=== PATIENT | female | born 1980 | race Two or more races ===

== ENCOUNTER 2018-03-17 20:01 | Emergency (ER) | payer SELFPAY ==
[~2018-03-17] VITALS: Ht 160 cm; Wt 59.0 kg
[2018-03-17 20:44] LABS: BASO # 0.1 x10^3/uL (0.0-0.2); BASO % 1 % (0-3); EOS # 0.1 x10^3/uL (0.0-0.7); EOS % 1 % (0-3); HEMATOCRIT 36.5 % (36.0-47.0); HEMOGLOBIN 12.7 g/dL (12.0-15.5); LYMPH # 2.5 x10^3/uL (1.0-4.8); LYMPH % 25 % (24-48); MEAN CORPUSCULAR HEMOGLOBIN 28 pg (25-35); MEAN CORPUSCULAR HGB CONC 35 g/dL (31-37); MEAN CORPUSCULAR VOLUME 80 fL (79-100); MONO # 0.7 x10^3/uL (0.0-1.1); MONO % 7 % (0-9); NEUT # 6.7 x10^3uL (1.8-7.7); NEUT % 67 % (31-73); PLATELET COUNT 290 x10^3/uL (140-400); RED BLOOD COUNT 4.55 x10^6/uL (3.50-5.40)
[2018-03-17 20:50] LABS: CALCIUM 9.4 mg/dL (8.5-10.1); CREATININE 0.4 mg/dL (0.6-1.0); GFR 181.6; POTASSIUM 3.4 mmol/L (3.5-5.1)
[2018-03-17] MEDS ORDERED: MORPHINE SULFATE 4 MG/ML VIAL. ONE (20:56)
[2018-03-17] MEDS ORDERED: ONDANSETRON PF 4 MG/2 ML VIAL. ONE (20:56)
--- NOTE | 2018-03-17 21:19 | PHYS DOC ---
Past Medical History Past Medical History: Anemia Past Surgical History: Appendectomy Alcohol Use: None Drug Use: None Adult General Chief Complaint Chief Complaint: VAGINAL BLEEDING HPI HPI Patient is a 37 year old female who presents with vaginal bleeding in . Patient is a at 12 weeks' gestation. She presents to the ER today complaining of onset of some abdominal pain and vaginal bleeding. She describes about equal the amount of a normal. That started earlier today. She also had some diffuse or abdominal cramping. No fever or chills. No lightheadedness or dizziness or palpitations. Patient states she was evaluated yesterday by her OB and was reportedly not having any problems at that time. Review of Systems Review of Systems Constitutional: Denies fever Eyes: Denies change in visual acuity HENT: Denies nasal congestion Respiratory: Denies cough Cardiovascular: No additional information not addressed in HPI GI: + lower abdominal pain. + nausea. no emesis : Denies dysuria Musculoskeletal: Denies back pain Integument: Denies rash Neurologic: Denies headache Endocrine: Denies polyuria All other systems were reviewed and found to be within normal limits, except as documented in this note. Current Medications Current Medications Current Medications Medications (Trade) Dose Ordered Sig/Ramy Start Time Stop Time Status Last Admin Dose Admin Morphine Sulfate (Morphine Sulfate) 4 mg STK-MED ONCE 03/17/18 20:56 03/17/18 20:57 DC Ondansetron HCl (Zofran) 4 mg STK-MED ONCE 03/17/18 20:56 03/17/18 20:57 DC Sodium Chloride 1,000 ml @ 1,000 mls/hr 1X ONCE 03/17/18 21:45 03/17/18 22:44 DC 03/17/18 21:30 1,000 MLS/HR Allergies Allergies Allergies Coded Allergies Type Severity Reaction Last Updated Verified No Known Drug Allergies 03/17/18 No Physical Exam Physical Exam Constitutional: Well developed, well nourished, no acute distress, non-toxic appearance HENT: Normocephalic, atraumatic, bilateral external ears normal, oropharynx moist Eyes: PERRLA, EOMI, conjunctiva normal Neck: Normal range of motion, no tenderness Cardiovascular:Heart rate regular rhythm, no murmur Lungs & Thorax: Bilateral breath sounds clear to auscultation Abdomen: Abdomen is appropriately gravid, soft, diffusely tender in the upper and lower quadrants, no guarding or rebound Skin: Warm, dry, no erythema Back: No tenderness Extremities: No tenderness, no edema Neurologic: Alert and oriented X 3 Psychologic: Affect normal Pelvic: Normal female external genitalia. There is blood emanating from the introitus. The mucosa is moist and noninflamed. Cervical os is visualized and found to have products of conception in the os. There is small amount of bleeding. Ring forceps were used and a products were removed. At this time the patient had some worsening of bleeding. Bimanual exam was completed. The os was dilated at least 1 cm and there are palpable conception products present Current Patient Data Vital Signs Vital Signs Date Time Temp Pulse Resp B/P (MAP) Pulse Ox O2 Delivery O2 Flow Rate FiO2 03/17/18 22:23 81 14 97/54 (68) 98 Room Air 03/17/18 20:01 98.1 98.1 Lab Values Laboratory Tests Test 03/17/18 20:35 White Blood Count 10.0 x10^3/uL (4.0-11.0) Red Blood Count 4.55 x10^6/uL (3.50-5.40) Hemoglobin 12.7 g/dL (12.0-15.5) Hematocrit 36.5 % (36.0-47.0) Mean Corpuscular Volume 80 fL (79-100) Mean Corpuscular Hemoglobin 28 pg (25-35) Mean Corpuscular Hemoglobin Concent 35 g/dL (31-37) Red Cell Distribution Width 23.0 % (11.5-14.5) H Platelet Count 290 x10^3/uL (140-400) Neutrophils (%) (Auto) 67 % (31-73) Lymphocytes (%) (Auto) 25 % (24-48) Monocytes (%) (Auto) 7 % (0-9) Eosinophils (%) (Auto) 1 % (0-3) Basophils (%) (Auto) 1 % (0-3) Neutrophils # (Auto) 6.7 x10^3uL (1.8-7.7) Lymphocytes # (Auto) 2.5 x10^3/uL (1.0-4.8) Monocytes # (Auto) 0.7 x10^3/uL (0.0-1.1) Eosinophils # (Auto) 0.1 x10^3/uL (0.0-0.7) Basophils # (Auto) 0.1 x10^3/uL (0.0-0.2) Platelet Estimate Adequate (ADEQUATE) Poikilocytosis Slight Microcytosis Slight Macrocytosis Slight Maternal Serum HCG Beta Subunit 88181 mIU/mL (0-5) H Sodium Level 140 mmol/L (136-145) Potassium Level 3.4 mmol/L (3.5-5.1) L Chloride Level 103 mmol/L (98-107) Carbon Dioxide Level 26 mmol/L (21-32) Anion Gap 11 (6-14) Blood Urea Nitrogen 8 mg/dL (7-20) Creatinine 0.4 mg/dL (0.6-1.0) L Estimated GFR (Cockcroft-Gault) 181.6 Glucose Level 76 mg/dL (70-99) Calcium Level 9.4 mg/dL (8.5-10.1) Laboratory Tests 03/17/18 20:35 Laboratory Tests 03/17/18 20:35 Microbiology 03/17/18 Wet Prep - Final, Complete EKG EKG [] Radiology/Procedures Radiology/Procedures Findings: Single intrauterine fetus is seen in variable presentation.The maturity is as follows. BPD 3.04 cm (15 weeks and 4 days) Head circumference 11.77 cm (15 weeks and 6 days) Abdominal circumference 9.75 cm (15 weeks and 6 days) Femur length 1.72 cm (15 weeks and 1 days) HC to AC ratio 1.21 (1.14 to 1.31) heart rate measures 157 beats per minute. There is adequate amniotic fluid volume. Composite maturity is 15 weeks and 4 days , corresponding to the LUCINA off 09/04/2018. Maturity by LMP is 14 weeks and 3 days with a LUCINA of 09/12/2018. Cervix measures 3.6 cm. Incidental nabothian cysts are seen in the cervix. There is trace amount of fluid in the endocervical canal. anatomy could not be evaluated due to early gestation. Impression: Single live intrauterine fetus in cephalic presentation of maturity 15 weeks and 4 days. Incidental nabothian cysts seen in the cervix. Trace fluid in the endocervical canal. Course & Med Decision Making Course & Med Decision Making Pertinent Labs and Imaging studies reviewed. (See chart for details) Patient is evaluated immediately on arrival to her room. She is in no acute distress but does have some mild abdominal discomfort. Standard spontaneous workup is ordered. Will do pelvic exam. 21:05: Pelvic exam is completed and documented above. Ultrasound is ordered. IV fluids are ordered. Morphine and Zofran. Exam is accompanied by female RN. Patient's also remains in the room. 22:40: All results are reviewed. Ultrasound is reassuring. Suspected tissue sent to pathology now seems more likely some portion of nabothian cyst based on the ultrasound. Cervix was palpated to be open 1 cm but US reported closed. All results are discussed with the patient with the use of the blue interpretation found. All her questions are answered. She is advised to seek close follow-up where she normally receives care. Pelvic rest is discussed. She is advised to come back to the ER if she is soaking more than 1 pad per hour for 3 consecutive hours or having uncontrolled pain. Her blood type is A+. Jose Armandoon Disclaimer Jose Armandoon Disclaimer This electronic medical record was generated, in whole or in part, using a voice recognition dictation system. Departure Departure Disposition: 01 HOME, SELF-CARE Condition: GOOD MEDARDO ROGERS DO Mar 17, 2018 21:19
[2018-03-17] MEDS ORDERED: IV NORMAL SALINE 1000ML BAG 1,000 ML IV ONE (21:45)
[2018-03-17 21:46] LABS: PLT ESTIMATE ADEQUATE (ADEQUATE)
[2018-03-17 21:47] LABS: MICROCYTOSIS SLIGHT; POIKILOCYTOSIS SLIGHT
--- NOTE | 2018-03-17 22:22 | RAD ---
Exam performed: OB sonogram greater than 14 weeks. History: Patient is , vaginal bleeding Date of Service: 03/17/2018 ,comparison: None available. Technique: Transabdominal. Findings: Single intrauterine fetus is seen in variable presentation.The maturity is as follows. BPD 3.04 cm (15 weeks and 4 days) Head circumference 11.77 cm (15 weeks and 6 days) Abdominal circumference 9.75 cm (15 weeks and 6 days) Femur length 1.72 cm (15 weeks and 1 days) HC to AC ratio 1.21 (1.14 to 1.31) heart rate measures 157 beats per minute. There is adequate amniotic fluid volume. Composite maturity is 15 weeks and 4 days , corresponding to the LUCINA off 09/04/2018. Maturity by LMP is 14 weeks and 3 days with a LUCINA of 09/12/2018. Cervix measures 3.6 cm. Incidental nabothian cysts are seen in the cervix. There is trace amount of fluid in the endocervical canal. anatomy could not be evaluated due to early gestation. Impression: Single live intrauterine fetus in cephalic presentation of maturity 15 weeks and 4 days. Incidental nabothian cysts seen in the cervix. Trace fluid in the endocervical canal. Electronically signed by: Rajni Farr MD (03/17/2018 10:19 PM) [facility]
[2018-03-17 22:23] VITALS: BP 97/54
== END 2018-03-17 22:50 | disposition home or self-care (01) ==
LOC: ER 20:01
DX: O20.8 Other hemorrhage in early pregnancy (principal); Z90.89 Acquired absence of other organs; R10.84 Generalized abdominal pain; Z3A.15 15 weeks gestation of pregnancy
CPT/HCPCS: 76805; 76817; 80048; 84702; 85025; 86850; 86900; 86901; 99285; J7030; Q0111